=== PATIENT | female | born 1950 | race Caucasian/White ===

== ENCOUNTER 2023-09-04 06:58 | Day surgery (SDC) | payer MEDICARE, SELFPAY ==
[2023-09-02 09:40] VITALS: BMI 29.3
--- NOTE | 2023-09-02 13:17 | P.CONAN_ITS ---
Documented by User: Suze Mayorga NP 09/02/23 13:18 HPI - Anesthesia Eval Consult details Narrative: 73yo F for Colonoscopy [facility] [place] Past Medical History Medical History Pancreatic cyst Tibial plateau fracture Diverticulitis Surgical History Surgical History History of breast biopsy Hx of hysterectomy H/O colonoscopy Social History Social History Patient Tobacco Use Status: Former Tobacco user Substance Use Type Other:: SLEEP GUMMIES Substance Use Frequency: Daily Have you been hit, kicked, punched, or otherwise hurt by someone within the past year? If so, by whom?: No Are you DNR?: No Advance Directives: No Advance Directives Information Provided: Yes Recently lost weight without trying: No Eating poorly because of decreased appetite: No Nutrition Risks: No Nutritional Risk Patient : No Meds Allergies Allergy/AdvReac Type Severity Reaction Status Date / Time azithromycin Allergy Unknown Verified 09/02/23 09:35 cephalexin [From Keflex] Allergy Unknown Verified 09/02/23 09:35 erythromycin base Allergy Unknown Verified 09/02/23 09:35 Home Medications Medication Instructions Recorded Confirmed Last Taken Type No Known Home Meds 09/02/23 09/02/23 Unknown History Exam Height,Weight and Vital Signs: Height 5 ft 1 in Weight 70.307 kg Assessment and Plan Assessment Anesthesia Assessment: Chart Reviewed Documented by User: Xiao Herring MD 09/04/23 08:13 [facility] [place] Past Medical History Medical History Pancreatic cyst Tibial plateau fracture Diverticulitis Surgical History Surgical History History of breast biopsy Hx of hysterectomy H/O colonoscopy History of Problems with Anesthesia: No Social History Social History Patient Tobacco Use Status: Former Tobacco user Substance Use Type Other:: SLEEP GUMMIES Substance Use Frequency: Daily Have you been hit, kicked, punched, or otherwise hurt by someone within the past year? If so, by whom?: No Are you DNR?: No Advance Directives: No Advance Directives Information Provided: Yes Recently lost weight without trying: No Eating poorly because of decreased appetite: No Nutrition Risks: No Nutritional Risk Patient : No Meds Allergies Allergy/AdvReac Type Severity Reaction Status Date / Time azithromycin Allergy Unknown Verified 09/02/23 09:35 cephalexin [From Keflex] Allergy Unknown Verified 09/02/23 09:35 erythromycin base Allergy Unknown Verified 09/02/23 09:35 Home Medications Medication Instructions Recorded Confirmed Last Taken Type No Known Home Meds 09/02/23 09/02/23 Unknown History Exam Airway Mallampati Class: II TM Dist: >3cm Neck ROM: Full Loose/Missing/Broken Teeth: No Heart: RRR Lungs: CTA Assessment and Plan Assessment Anesthesia Assessment: Anesthesia Plan Discussed Final Anesthetic Review History of Problems with Anesthesia: No NPO: Yes ASA Class: II Final Preanesthetic Review: Meds/Allgs Chart Reviewed, Consent Obtained/Reviewed and Anes Risks/Benef Reviewed Patient Risk: Low Procedure Risk: Low Anesthetic Plan Anesthetic Plan: MAC: Disposition: Standard PACU
[2023-09-04 07:30] VITALS: BP 168/87; PULSE 88; RESP 18; TEMP 36.4; O2SAT 98; BMI 29.9
[2023-09-04] MEDS: Lactated Ringers 1,000 ML 100 ML IVCONT (07:35)
--- NOTE | 2023-09-04 08:17 | MHC.SHP ---
Pre-Procedural Eval Section A - 24 Hr Update-Section A only Date of Service: 09/04/23 Section B - Complete if H&P > 30 days Chief Complaint: Diverticulitis of intestine, part unspecified, wit Details of Present Illness: see H&P no changes Relevant Family History (Specify if Yes): No Relevant Social History: None Present Medications: see Short Stay Collaborative assessment Medical History: No relevant PMH Allergies: Allergies Allergy/AdvReac Type Severity Reaction Status Date / Time azithromycin Allergy Unknown Verified 09/02/23 09:35 cephalexin [From Keflex] Allergy Unknown Verified 09/02/23 09:35 erythromycin base Allergy Unknown Verified 09/02/23 09:35 Review of Systems Sugical H&P ROS: Negative: Constitution, Cardiovascular, Respiratory, Neurological, Psychiatric, Hem-Onc, Allergic/Immunologic, Gastrointestinal, Genitourinary, Musculoskeletal, Integumentary, Endocrine and Eyes/Ears/Nose/Throat Exam Surgical H&P Exam: Normal: HEENT, Normal: Heart, Normal: Lungs, Normal: Extremities, Normal: Abdomen, Normal: Skin and Normal: Neurological Plan Diagnosis/Plan: Unchanged I have reviewed the history and physical and performed a pertinent physical examination on my patient. No changes have occurred unless specified. Time Spent With Patient Time: Total time managing care of this patient today ____ minutes.
[2023-09-04 08:50] VITALS: BP 116/67; PULSE 74; RESP 18; TEMP 36.3; O2SAT 97
[2023-09-04 09:05] VITALS: BP 150/90; PULSE 75; RESP 16; TEMP 36.3; O2SAT 98
--- NOTE | 2023-09-04 09:08 | OP_ITS ---
DATE OF SERVICE: 09/04/2023 SURGEON: Adrien Shahid MD INDICATIONS: Diverticulitis. PREOPERATIVE DIAGNOSIS: POSTOPERATIVE DIAGNOSIS: PROCEDURE PERFORMED: ESTIMATED BLOOD LOSS: COMPLICATIONS: ANESTHESIA: Monitored anesthesia care. ASSISTANTS: SPECIMENS: PROCEDURE: Colonoscopy to the terminal ileum with snare polypectomy. DESCRIPTION OF PROCEDURE: A history and physical performed. The risks and benefits of the procedure were explained to the patient. Informed consent was obtained. The patient was placed in the left lateral decubitus position. A digital rectal exam was performed and was found to be normal. The Olympus pediatric video colonoscope was introduced into the rectum and advanced to the cecum. The cecum was identified by transillumination, palpation, and identification of ileocecal valve. Examination was performed. The scope was removed. She tolerated the procedure well and was returned to recovery room in stable condition. FINDINGS: The terminal ileum was examined and appeared normal. The visualized colonic mucosa was normal. The quality of the prep was good. There was moderate sigmoid diverticulosis as well as some left-sided diverticulosis. There was no diverticulitis, in the rectum was a 6 mm polyp, which was removed with a cold snare and recovered via suction. Internal hemorrhoids were noted on retroflexed examination. IMPRESSION: 1. Colon polyp. 2. Diverticulosis. RECOMMENDATIONS: Follow up the biopsy results. MD RUBY Bowie/MARCELA / [id number]
== END 2023-09-04 09:34 | disposition home or self-care (01) ==
PROVIDERS: PCP Family Medicine; Visit Provider Internal Medicine Gastroenterology
PROC: 0DJD8ZZ Inspection of Lower Intestinal Tract, Via Natural or Artificial Opening Endoscopic (ICD-10-PCS; CPT 45378; principal; 2023-09-04 08:20)
DX: K57.30 Diverticulosis of large intestine without perforation or abscess without bleeding (principal); Z83.719 Family history of colon polyps, unspecified; K62.1 Rectal polyp; K86.2 Cyst of pancreas; K64.8 Other hemorrhoids; Z98.890 Other specified postprocedural states; Z88.1 Allergy status to other antibiotic agents
CPT/HCPCS: 45385; 88305; J2704